=== PATIENT | male | born 1940 | race Caucasian/White ===

== ENCOUNTER 2019-02-13 22:43 | Inpatient (IN) | payer OTHER ==
--- NOTE | 2019-02-13 22:47 | PDOC ---
History of Present Illness - General Chief Complaint: Lightheaded Stated Complaint: DIZZINESS, HEADACHE Time Seen by Provider: 02/13/19 22:47 History Source: Patient Exam Limitations: No Limitations - History of Present Illness Initial Comments: 02/13/19 23:16 This is an 78-year-old male brought in by EMS for evaluation of dizziness and headache. Patient said approximately 5 PM this evening he had acute onset of frontal headache with associated vertigo-type symptoms. Patient denies any vomiting but has had some nausea. Patient denies any fever, chills, chest pain, shortness of breath, abdominal pain or any other complaints. Patient denies history of similar symptoms in the past. Allergies: as per nursing notes Past Medical History: none Social history: Lives with family. No smoking. No alcohol. No illicit drugs. Surgical history: None General: No fevers or chills, no weakness, no weight loss HEENT: No change in vision. No sore throat,. No ear pain CardioVascular: no chest discomfort. No shortness of breath Respiratory:No cough, or wheezing. Gastrointestinal: + nausea, no vomiting, diarrhea or constipation, No rectal bleeding Genitourinary: No dysuria, hematuria, or frequency Musculoskeletal: No joint or muscle pain or swelling Neurologic: + headache, +vertigo, +dizziness, no loss of consciousness Psychiatric: nor depression Skin: No rashes or easy bruising Endocrine: no increased thirst or abnormal weight change Allergic: no skin or latex allergy All other systems reviewed and normal Exam: General: Well-nourished well-developed individual, no acute distress HEENT: Throat: Normal, tonsils normal, no erythema or exudate Neck: Supple, no meningeal signs, no lymphadenopathy Eyes::Pupils equal reactive and round, extraocular motion intact Chest: Nontender to palpation Cardiac: S1-S2 normal, regular rate and rhythm, no murmurs rubs or gallops Respiratory: Lungs clear to auscultation bilateral Abdomen: Soft, nondistended, normal bowel sounds, there is no tenderness on palpation diffusely Extremities: Warm, dry, no cyanosis, clubbing, or edema Skin: No rashes Neuro: Alert and oriented x3, CN II - XII intact, nonfocal exam with normal strength, normal sensation, normal reflexes, normal gait, Psych: Normal mood and affect 02/14/19 02:33 Assessment and plan: This is an 78-year-old male with comes in with vertigo type symptoms and a headache. Patient's head CT was negative for any acute pathology. Patient's EKG was normal with the exception of a prolonged QT Patient's urine showed a urinary tract infection Patient given ceftriaxone for the urinary tract infection and some IV fluids Patient's symptoms are not improved and he will be admitted to a telemetry bed rule out posterior circulation stroke rule out cardiac causes. Past History - Past Medical History Allergies/Adverse Reactions: Allergies Allergy/AdvReac Type Severity Reaction Status Date / Time No Known Allergies Allergy Verified 02/13/19 22:46 ED Treatment Course - LABORATORY CBC & Chemistry Diagram: 02/14/19 00:20 02/14/19 00:20 *DC/Admit/Observation/Transfer Diagnosis at time of Disposition: Vertigo, Cystitis - Discharge Dispostion Condition at time of disposition: Good Decision to Admit order: Yes - Referrals - Patient Instructions - Post Discharge Activity
[2019-02-13] MEDS ORDERED: MECLIZINE HCL 25 MG TABLET (FP) PO ONE (23:17)
[2019-02-14] MEDS ORDERED: SODIUM CHLORIDE 500 ML IV STA (00:12)
[2019-02-14] MEDS ORDERED: MECLIZINE HCL 25 MG TABLET (FP) ONE (00:41)
[2019-02-14 01:26] LABS: BASO % 1.2 % (0-2.0); EOS % 0.8 % (0-4.5); HEMATOCRIT 30.1 % (35.4-49); LYMPH % 25.6 % (8-40); MCH 32.8 pg (25.7-33.7); MCHC 33.4 g/dl (32.0-35.9); MEAN CELL VOLUME 98.2 fl (80-96); MEAN PLT VOLUME 10.2 fl (7.5-11.1); MONO % 6.2 % (3.8-10.2); NEUT % 66.2 % (42.8-82.8); PLATELET COUNT 186 K/MM3 (134-434); RBC 3.06 M/mm3 (4.00-5.60); RDW 22.9 % (11.9-15.9); WHITE BLOOD COUNT 7.6 K/mm3 (4.0-10.0)
[2019-02-14 01:38] LABS: EPI CELLS 0.7 /HPF (0-5/HPF); HYALINE CASTS 9 /lpf (0-8); PH,URINE 5.5 (5.0-8.0); URINE APPEARANCE CLOUDY; URINE BACTERIA 4492.2 /hpf (NEGATIVE); URINE BILIRUBIN 1+ (NEGATIVE); URINE COLOR DK YELLOW; URINE GLUCOSE (UA) NEGATIVE (NEGATIVE); URINE KETONE TRACE (NEGATIVE); URINE LEUK ESTERASE 2+ (NEGATIVE); URINE NITRITE NEGATIVE (NEGATIVE); URINE PROTEIN 1+ (NEGATIVE); URINE RBC 66 /hpf (0-4); URINE WBC 305 /hpf (0-5)
[2019-02-14 01:53] LABS: ALBUMIN 3.6 g/dl (3.4-5.0); ALK PHOS 77 U/L (45-117); ANION GAP 11 MMOL/L (8-16); BILIRUBIN,TOTAL 1.3 mg/dL (0.2-1); CALCIUM 8.8 mg/dL (8.5-10.1); CHLORIDE 104 mmol/L (98-107); CO2 28 mmol/L (21-32); CREATININE 1.1 mg/dL (0.55-1.3); GLUCOSE,RANDOM 103 mg/dL (74-106); SGOT/AST 22 U/L (15-37); SGPT/ALT 26 U/L (13-61); SODIUM 144 mmol/L (136-145); TOT PROT 7.1 g/dl (6.4-8.2)
[2019-02-14] MEDS ORDERED: CEFTRIAXONE 1,000 MG in DEXTROSE 5%-WATER - 50 ML IVPB ONE (02:14)
[2019-02-14] MEDS ORDERED: cefTRIAXone SODIUM 1 GM VIAL ONE (02:36)
[2019-02-14 03:52] VITALS: BMI 27.1
[2019-02-14] MEDS ORDERED: MECLIZINE HCL 25 MG TABLET (FP) PO PRN (07:00)
[2019-02-14 08:04] LABS: ANISOCYTOSIS 3+; MACROCYTOSIS 0; TARGET CELLS 1+; TEAR DROP CELLS 1+
[2019-02-14 08:06] LABS: CALCIUM 8.4 mg/dl (8.5-10); CREATININE 0.9 mg/dl (0.55-1.3); POTASSIUM 3.8 mmol/L (3.5-5.1)
[2019-02-14 08:18] LABS: BASO % 1.3 % (0-2.0); EOS % 1.1 % (0-4.5); HEMATOCRIT 28.5 % (35.4-49); HEMOGLOBIN 9.4 GM/dl (11.7-16.9); MCH 32.7 pg (25.7-33.7); MCHC 32.8 g/dl (32.0-35.9); MEAN CELL VOLUME 99.4 fl (80-96); MEAN PLT VOLUME 9.8 fl (7.5-11.1); MONO % 7.8 % (3.8-10.2); NEUT % 62.8 % (42.8-82.8); PLATELET COUNT 173 K/MM3 (134-434); RBC 2.86 M/mm3 (4.00-5.60); RDW 21.7 % (11.9-15.9); WHITE BLOOD COUNT 6.7 K/mm3 (4.0-10.8)
--- NOTE | 2019-02-14 09:04 | EKG ---
Test Reason : Blood Pressure : / mmHG Vent. Rate : 064 BPM Atrial Rate : 064 BPM P-R Int : 136 ms QRS Dur : 088 ms QT Int : 476 ms P-R-T Axes : 047 021 011 degrees QTc Int : 491 ms NORMAL SINUS RHYTHM MINIMAL VOLTAGE CRITERIA FOR LVH, MAY BE NORMAL VARIANT PROLONGED QT ABNORMAL ECG NO PREVIOUS ECGS AVAILABLE Confirmed by KEILA TIDWELL, BRAD ([id number]) on 02/14/2019 9:04:19 AM Referred By: CHARISSA FRY Confirmed By:BRAD PEDRAZA MD
--- NOTE | 2019-02-14 10:17 | HP ---
CHIEF COMPLAINT: Dizziness, headache PCP: Dr. Palomo, [facility], [address] [facility] ([phone]) Urologist: Dr. Villegas HISTORY OF PRESENT ILLNESS: 78 year-old man with PMH significant for benign essential tremor and enlarged prostate, presented to the ED for evaluation of sudden onset of dizziness and headache. Patient was in his usual state of health until yesterday when he stood from a chair and experienced dizziness and an acute onset of a frontal headache 10/10. The dizziness resolved but the headache remained. At time of this admission, patient describes headache as 6/10 and he is with some lightheadedness. Patient denies any impairment of speech, gait is steady, no weakness, no paresthesias. Patient denies chest pain, palpitations, SOB, PANDYA, lower extremity edema. He endorses bilateral leg pain x 3 months worse with walking and relieved with rest. Patient denies recent illness, no fever, sweats , chills, nausea, vomiting, or diarrhea. 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; 30 steps to apartment which he does most days Smoking: no Alcohol: no Drugs: no Family History: non-contributory Allergies No Known Allergies Allergy (Verified 02/13/19 22:46) HOME MEDICATIONS: Home Medications Medication Instructions Recorded Oxybutynin Chloride [Oxybutynin 15 mg PO BID 02/14/19 Chloride ER] REVIEW OF SYSTEMS CONSTITUTIONAL: Absent: fever, chills, diaphoresis, generalized weakness, malaise, loss of appetite, weight change HEENT: Absent: rhinorrhea, nasal congestion, throat pain, throat swelling, difficulty swallowing, mouth swelling, ear pain, eye pain, visual changes CARDIOVASCULAR: Absent: chest pain, syncope, palpitations, irregular heart rate, lightheadedness , peripheral edema RESPIRATORY: Absent: cough, shortness of breath, dyspnea with exertion, orthopnea, wheezing, stridor, hemoptysis GASTROINTESTINAL: Absent: abdominal pain, abdominal distension, nausea, vomiting, diarrhea, constipation, melena, hematochezia GENITOURINARY: Absent: dysuria, frequency, urgency, hesitancy, hematuria, flank pain, genital pain MUSCULOSKELETAL: Absent: myalgia, arthralgia, joint swelling, back pain, neck pain SKIN: Absent: rash, itching, pallor HEMATOLOGIC/IMMUNOLOGIC: Absent: easy bleeding, easy bruising, lymphadenopathy, frequent infections ENDOCRINE: Absent: unexplained weight gain, unexplained weight loss, heat intolerance, cold intolerance NEUROLOGIC: +dizziness, + headache Absent: headache, focal weakness or paresthesias, dizziness, unsteady gait, seizure, mental status changes, bladder or bowel incontinence PSYCHIATRIC: Absent: anxiety, depression, suicidal or homicidal ideation, hallucinations. PHYSICAL EXAMINATION Vital Signs - 24 hr 02/13/19 02/13/19 02/14/19 22:46 23:15 02:48 Temperature 98.4 F 98.4 F Pulse Rate 66 Pulse Rate [ 67 Right] Respiratory 18 Rate Blood Pressure 143/70 Blood Pressure 170/79 [Left Arm] O2 Sat by Pulse 100 99 99 Oximetry (%) 02/14/19 02/14/19 03:41 06:39 Temperature 97.7 F 98.5 F Pulse Rate 80 74 Pulse Rate [ Right] Respiratory 18 18 Rate Blood Pressure 175/79 H 160/76 Blood Pressure [Left Arm] O2 Sat by Pulse 98 96 Oximetry (%) GENERAL: Awake, alert, and fully oriented, in no acute distress. HEAD: Normal with no signs of trauma. EYES: Pupils equal, round and reactive to light, extraocular movements intact, sclera anicteric, conjunctiva clear. No lid lag. EARS, NOSE, THROAT: Ears normal, nares patent, oropharynx clear without exudates. Moist mucous membranes. Edentulous. LUNGS: Breath sounds equal, clear to auscultation bilaterally. No wheezes, and no crackles. No accessory muscle use. HEART: Regular rate and rhythm, S1 and S2 ABDOMEN: Soft, nontender, not distended UPPER EXTREMITIES: 2+ pulses, warm, well-perfused. No cyanosis. No clubbing. No peripheral edema. LOWER EXTREMITIES: 2+ pulses, warm, well-perfused. No calf tenderness. No peripheral edema. NEUROLOGICAL: +nystagmus PSYCHIATRIC: Cooperative. Good eye contact. Appropriate mood and affect. SKIN: Warm, dry, normal turgor Laboratory Results - last 24 hr 02/14/19 02/14/1902/14/19 00:16 00:20 00:20 WBC 7.6 RBC 3.06 L Hgb 10.0 L Hct 30.1 L MCV 98.2 H MCH 32.8 MCHC 33.4 RDW 22.9 H Plt Count 186 MPV 10.2 Absolute Neuts (auto) 5.0 Neutrophils % 66.2 Lymphocytes % 25.6 Monocytes % 6.2 Eosinophils % 0.8 Basophils % 1.2 Nucleated RBC % 0 Hypochromia 3+ Poikilocytosis 2+ Anisocytosis 3+ Microcytosis 3+ Macrocytosis 0 Target Cells 1+ Tear Drop Cells 1+ Sodium 144 Potassium 4.0 Chloride 104 Carbon Dioxide 28 Anion Gap 11 BUN 16.0 Creatinine 1.1 Est GFR (CKD-EPI)AfAm 73.09 Est GFR (CKD-EPI)NonAf 63.07 Random Glucose 103 Calcium 8.8 Total Bilirubin 1.3 H AST 22 ALT 26 Alkaline Phosphatase 77 Creatine Kinase 41 Troponin I < 0.02 Total Protein 7.1 Albumin 3.6 Urine Color Dk yellow Urine Appearance Cloudy Urine pH 5.5 Ur Specific [place] 1.022 Urine Protein 1+ H Urine Glucose (UA) Negative Urine Ketones Trace H Urine Blood 2+ H Urine Nitrite Negative Urine Bilirubin 1+ H Urine Urobilinogen 1.0 Ur Leukocyte Esterase 2+ H Urine WBC (Auto) 305 Urine RBC (Auto) 66 Urine Casts (Auto) 9 U Epithel Cells (Auto) 0.7 Urine Bacteria (Auto) 4492.2 02/14/19 02/14/19 02/14/19 07:11 07:11 07:11 WBC 6.7 RBC 2.86 L Hgb 9.4 L Hct 28.5 L MCV 99.4 H MCH 32.7 MCHC 32.8 RDW 21.7 H Plt Count 173 MPV 9.8 Absolute Neuts (auto) 4.2 Neutrophils % 62.8 Lymphocytes % 27.0 Monocytes % 7.8 Eosinophils % 1.1 Basophils % 1.3 Nucleated RBC % Hypochromia Poikilocytosis Anisocytosis Microcytosis Macrocytosis Target Cells Tear Drop Cells Sodium 136 Potassium 3.8 Chloride 105 Carbon Dioxide 26 Anion Gap 5 L BUN 15.0 Creatinine 0.9 Est GFR (CKD-EPI)AfAm 93.16 Est GFR (CKD-EPI)NonAf 80.38 Random Glucose 102 Calcium 8.4 L Total Bilirubin AST ALT Alkaline Phosphatase Creatine Kinase Troponin I < 0.03 Total Protein Albumin Urine Color Urine Appearance Urine pH Ur Specific [place] Urine Protein Urine Glucose (UA) Urine Ketones Urine Blood Urine Nitrite Urine Bilirubin Urine Urobilinogen Ur Leukocyte Esterase Urine WBC (Auto) Urine RBC (Auto) Urine Casts (Auto) U Epithel Cells (Auto) Urine Bacteria (Auto) ASSESSMENT/PLAN 78 year-old man with PMH significant for benign essential tremor and enlarged prostate. Admitted for headache and dizziness r/o CVA/TIA. Found to have elevated blood pressure and UTI. r/o TIA/CVA --CT head unremarkable --MRI: no acute infarct or hemorrhage --neuro consult --start ASA, statin --Tylenol PRN Hypertension --MRI shows extensive ischemic changes most likely from HTN or small vessel arteriosclerosis --BP elevated on admission --start lisinopril Complicated UTI --afebrile, no leukocytosis --continue ceftriaxone --culture pending Enlarged prostate --continue oxybutinin FEN Fluids: PO intake adequate Electrolytes: replete as indicated Nutrition: low sodium DVT prophylaxis: subq lovenox Physical therapy Dispo: continues to require inpatient care. Full code. Visit type - Emergency Visit Emergency Visit: Yes ED Registration Date: 02/14/19 Care time: The patient presented to the Emergency Department on the above date and was hospitalized for further evaluation of their emergent condition. - New Patient This patient is new to me today: Yes Date on this admission: 02/14/19 - Critical Care Critical Care patient: No
[2019-02-14] MEDS: ENOXAPARIN NA (PORCINE) 40 MG/0.4 ML DISP.SYRIN SQ SCH (10:43)
[2019-02-14] MEDS ORDERED: LISINOPRIL 10 MG TABLET (FP) PO SCH (13:15)
[2019-02-14] MEDS ORDERED: LISINOPRIL 10 MG TABLET (FP) PO STA (14:10)
[2019-02-14] MEDS ORDERED: ATORVASTATIN CA 40 MG TABLET (FP) PO SCH (15:15)
[2019-02-14] MEDS ORDERED: ASPIRIN COATED 81 MG TABLET.EC PO SCH (15:15)
[2019-02-14] MEDS ORDERED: ACETAMINOPHEN 325 MG TABLET (FP) PO ONE (15:15)
--- NOTE | 2019-02-14 19:05 | CON.NEURO ---
Consult - Alcohol/Substance Use Hx Alcohol Use: Yes (social) - Smoking History Smoking history: Never smoked Have you smoked in the past 12 months: No If you are a former smoker, when did you quit?: 1960s Home Medications - Allergies Allergies/Adverse Reactions: Allergies Allergy/AdvReac Type Severity Reaction Status Date / Time No Known Allergies Allergy Verified 02/13/19 22:46 - Home Medications Home Medications: Ambulatory Orders Oxybutynin Chloride [Oxybutynin Chloride ER] 15 mg PO BID 02/14/19 Physical Exam-Neuro Vital Signs: Vital Signs Temperature 98.4 F 02/14/19 13:53 Pulse Rate 61 02/14/19 13:53 Respiratory Rate 17 02/14/19 13:53 Blood Pressure 122/50 L 02/14/19 13:53 O2 Sat by Pulse Oximetry (%) 96 02/14/19 13:53 Labs: CBC, BMP 02/14/19 07:11 02/14/19 07:11 Assessment/Plan cc Vertigo and Headche HPI 78 year old male history of BPH, ET. He came to hospital for sudden onset dizziness and headache. He describes headhace as frontal moderate intensity. Patietn describes dizziness as spinning sensation. He is independent at home, he is able to walk around with cane. Patient denies any focal neurological symptoms. He is found to have uti and being treated with abx. 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; 30 [address] to apartment which he does most days Smoking: Alcohol: Drugs: Allergies No Known Allergies Allergy (Verified 02/13/19 22:46) SH,ROS,FH , Medication reviewed in chart NEUROLOGICAL EXAMINATION Alert oriented x 3, speech is normal, neck is supple VSS eomi, no nystagmus was seen, pupils reactive, vf normal, face sensation is normal 5/5 all ext, ftn hts is normal sensation is normal reflex are normal mri of brain unremarkable Assessment/plan Sudden onset vertigo /headahce could be secondary to uti, patient has no focal neurological symptoms, no evidence of stroke , meningitis , cerebellar dysfunction, neuropathy Plan: suggest PT and continue abx for UTI - PT can - supprotive care
[2019-02-14] MEDS ORDERED: ACETAMINOPHEN 325 MG TABLET (FP) PO PRN (21:00)
[2019-02-14] MEDS ORDERED: PATIENT'S OWN MEDICATION (NON-FORMULARY) (Oxybutynin Chloride [Oxybutynin Chloride Er] 15 PO SCH (22:00)
--- NOTE | 2019-02-15 06:18 | PN ---
Physical Exam: SUBJECTIVE: Patient seen and examined. Cheery, feels well, voices no complaints , would like to go home as soon as possible. OBJECTIVE: Vital Signs Period Temp Pulse Resp BP Sys/Haas Pulse Ox Last 24 Hr 97.5 F-98.5 F 57-74 17-19 106-160/42-76 96-100 GENERAL: Awake, alert, and fully oriented, in no acute distress. LUNGS: Breath sounds equal, clear to auscultation bilaterally. No wheezes, and no crackles. No accessory muscle use. HEART: Regular rate and rhythm, S1 and S2 ABDOMEN: Soft, nontender, not distended UPPER EXTREMITIES: 2+ pulses, warm, well-perfused. No cyanosis. No clubbing. No peripheral edema. LOWER EXTREMITIES: 2+ pulses, warm, well-perfused. No calf tenderness. No peripheral edema. NEUROLOGICAL: CN II-XII grossly intact Laboratory Results - last 24 hr 02/14/19 02/14/19 02/14/19 00:20 00:20 07:11 WBC 6.7 RBC 2.86 L Hgb 9.4 L Hct 28.5 L MCV 99.4 H MCH 32.7 MCHC 32.8 RDW 21.7 H Plt Count 173 MPV 9.8 Absolute Neuts (auto) 4.2 Neutrophils % 62.8 Lymphocytes % 27.0 Monocytes % 7.8 Eosinophils % 1.1 Basophils % 1.3 Hypochromia 3+ Poikilocytosis 2+ Anisocytosis 3+ Microcytosis 3+ Macrocytosis 0 Target Cells 1+ Tear Drop Cells 1+ Sodium Potassium Chloride Carbon Dioxide Anion Gap BUN Creatinine Est GFR (CKD-EPI)AfAm Est GFR (CKD-EPI)NonAf Random Glucose Calcium Troponin I Urine Color Cancelled Urine Appearance Cancelled Urine pH Cancelled Urine Protein Cancelled Urine Glucose (UA) Cancelled Urine Ketones Cancelled Urine Blood Cancelled Urine Nitrite Cancelled Urine Bilirubin Cancelled Urine Urobilinogen Cancelled Ur Leukocyte Esterase Cancelled 02/14/19 02/14/19 02/14/19 07:11 07:11 12:25 WBC RBC Hgb Hct MCV MCH MCHC RDW Plt Count MPV Absolute Neuts (auto) Neutrophils % Lymphocytes % Monocytes % Eosinophils % Basophils % Hypochromia Poikilocytosis Anisocytosis Microcytosis Macrocytosis Target Cells Tear Drop Cells Sodium 136 Potassium 3.8 Chloride 105 Carbon Dioxide 26 Anion Gap 5 L BUN 15.0 Creatinine 0.9 Est GFR (CKD-EPI)AfAm 93.16 Est GFR (CKD-EPI)NonAf 80.38 Random Glucose 102 Calcium 8.4 L Troponin I < 0.03 < 0.03 Urine Color Urine Appearance Urine pH Urine Protein Urine Glucose (UA) Urine Ketones Urine Blood Urine Nitrite Urine Bilirubin Urine Urobilinogen Ur Leukocyte Esterase Active Medications Generic Name Dose Route Start Last Admin Trade Name Freq PRN Reason Stop Dose Admin Acetaminophen 650 mg 02/14/19 21:00 Tylenol - PO Q6H PRN PAIN LEVEL 1-5 Aspirin 81 mg 02/14/19 15:15 02/14/19 15:43 Ecotrin - PO 81 mg DAILY JARED Administration Atorvastatin Calcium 40 mg 02/14/19 15:15 02/14/19 15:43 Lipitor - PO 40 mg DAILY JARED Administration Enoxaparin Sodium 40 mg 02/14/19 10:00 02/14/19 10:43 Lovenox - SQ 40 mg DAILY JARED Administration Ceftriaxone Sodium 50 mls @ 100 mls/hr 02/15/19 10:00 Ceftriaxone 1 Gm-D5w Bag IVPB DAILY [facility] Protocol Lisinopril 10 mg 02/15/19 10:00 Prinivil PO DAILY JARED Solifenacin 10 mg 02/15/19 10:00 Vesicare - PO DAILY [facility] ASSESSMENT/PLAN: 78 year-old man with PMH significant for benign essential tremor and enlarged prostate. Admitted for headache and dizziness r/o CVA/TIA. Found to have elevated blood pressure and UTI. TIA/CVA ruled out --CT head unremarkable --MRI: no acute infarct or hemorrhage --seen and evaluated by neuro Dr. Luciano: no focal neurological symptoms, no evidence of stroke, meningitis, cerebellar dysfunction, neuropathy; vertigo and headache could be secondary to UTI --ASA and statin dc'd Hypertension --mildly hypotensive, d/c lisinopril --orthostatics now Complicated UTI --afebrile, no leukocytosis --continue ceftriaxone (day #2) --culture pending organism Enlarged prostate --continue vesicare FEN Fluids: PO intake adequate Electrolytes: replete as indicated Nutrition: low sodium DVT prophylaxis: subq lovenox Physical therapy Dispo: continues to require inpatient care. Full code. Visit type - Emergency Visit Emergency Visit: Yes ED Registration Date: 02/14/19 Care time: The patient presented to the Emergency Department on the above date and was hospitalized for further evaluation of their emergent condition. - New Patient This patient is new to me today: No - Critical Care Critical Care patient: No
[2019-02-15 07:09] LABS: HEMOGLOBIN 9.8 GM/dl (11.7-16.9)
[2019-02-15 07:17] LABS: BASO % 1.9 % (0-2.0); EOS % 7.1 % (0-4.5); HEMATOCRIT 30.1 % (35.4-49); LYMPH % 43.8 % (8-40); MCH 32.2 pg (25.7-33.7); MCHC 32.6 g/dl (32.0-35.9); MEAN CELL VOLUME 98.5 fl (80-96); MEAN PLT VOLUME 9.6 fl (7.5-11.1); MONO % 10.1 % (3.8-10.2); NEUT % 37.1 % (42.8-82.8); PLATELET COUNT 196 K/MM3 (134-434); RBC 3.05 M/mm3 (4.00-5.60); RDW 23.4 % (11.9-15.9); WHITE BLOOD COUNT 6.3 K/mm3 (4.0-10.8)
[2019-02-15 07:19] LABS: ALBUMIN 3.4 g/dl (3.4-5.0); BILIRUBIN,TOTAL 0.9 mg/dl (0.2-1); CALCIUM 8.6 mg/dl (8.5-10); CREATININE 1.2 mg/dl (0.55-1.3); POTASSIUM 3.9 mmol/L (3.5-5.1); TOT PROT 6.4 g/dl (6.4-8.2)
[2019-02-15] MEDS ORDERED: SOLIFENACIN SUCCINATE 5 MG TAB PO SCH (10:00)
[2019-02-15] MEDS ORDERED: LISINOPRIL 10 MG TABLET (FP) PO SCH ×2 (10:00)
[2019-02-15] MEDS ORDERED: CEFTRIAXONE 1 G/50 ML PREMIX 50 ML IVPB SCH ×2 (10:00)
[2019-02-15] MEDS: ENOXAPARIN NA (PORCINE) 40 MG/0.4 ML DISP.SYRIN SQ SCH (10:23)
[2019-02-15 14:14] VITALS: BP 128/52; PULSE 67; TEMP 98.4
--- NOTE | 2019-02-15 15:19 | DS ---
Physical Exam: SUBJECTIVE: Patient seen and examined. Patient seen and examined. Cheery, feels well, voices no complaints, would like to go home as soon as possible. OBJECTIVE: Vital Signs Period Temp Pulse Resp BP Sys/Haas Pulse Ox Last 24 Hr 97.4 F-98.4 F 57-81 18-19 106-136/42-60 99-100 PHYSICAL EXAM GENERAL: Awake, alert, and fully oriented, in no acute distress. LUNGS: Breath sounds equal, clear to auscultation bilaterally. No wheezes, and no crackles. No accessory muscle use. HEART: Regular rate and rhythm, S1 and S2 ABDOMEN: Soft, nontender, not distended UPPER EXTREMITIES: 2+ pulses, warm, well-perfused. No cyanosis. No clubbing. No peripheral edema. LOWER EXTREMITIES: 2+ pulses, warm, well-perfused. No calf tenderness. No peripheral edema. NEUROLOGICAL: CN II-XII grossly intact LABS Laboratory Results - last 24 hr 02/14/19 02/15/19 02/15/19 00:20 06:57 06:57 WBC 6.3 RBC 3.05 L Hgb 9.8 L Hct 30.1 L MCV 98.5 H MCH 32.2 MCHC 32.6 RDW 23.4 H Plt Count 196 MPV 9.6 Absolute Neuts (auto) 2.4 Neutrophils % 37.1 L D Lymphocytes % 43.8 H D Monocytes % 10.1 Eosinophils % 7.1 H D Basophils % 1.9 Sodium 140 Potassium 3.9 Chloride 108 H Carbon Dioxide 28 Anion Gap 4 L BUN 20.0 H Creatinine 1.2 Est GFR (CKD-EPI)AfAm 65.79 Est GFR (CKD-EPI)NonAf 56.77 Random Glucose 90 Calcium 8.6 Magnesium 2.0 Total Bilirubin 0.9 AST 31 ALT 24 Alkaline Phosphatase 64 Total Protein 6.4 Albumin 3.4 Urine Color Cancelled Urine Appearance Cancelled Urine pH Cancelled Urine Protein Cancelled Urine Glucose (UA) Cancelled Urine Ketones Cancelled Urine Blood Cancelled Urine Nitrite Cancelled Urine Bilirubin Cancelled Urine Urobilinogen Cancelled Ur Leukocyte Esterase Cancelled HOSPITAL COURSE: Date of Admission:02/14/19 Date of Discharge: 02/15/19 Pre hospital course 78 year-old man with PMH significant for benign essential tremor and enlarged prostate, presented to the ED for evaluation of sudden onset of dizziness and headache. Patient was in his usual state of health until yesterday when he stood from a chair and experienced dizziness and an acute onset of a frontal headache 10/10. The dizziness resolved but the headache remained. At time of this admission, patient describes headache as 6/10 and he is with some lightheadedness. Patient denies any impairment of speech, gait is steady, no weakness, no paresthesias. Patient denies chest pain, palpitations, SOB, PANDYA, lower extremity edema. He endorses bilateral leg pain x 3 months worse with walking and relieved with rest. Patient denies recent illness, no fever, sweats , chills, nausea, vomiting, or diarrhea. ER course (1) BP 175/79 (2) UA: 305 WBCs (3) CT head: no acute process Subsequent hospital course 78 year-old man with PMH significant for benign essential tremor and enlarged prostate. Admitted for headache and dizziness r/o CVA/TIA. Found to have elevated blood pressure and possible UTI. TIA/CVA ruled out --CT head unremarkable --MRI: no acute infarct or hemorrhage --seen and evaluated by neuro Dr. Luciano: no focal neurological symptoms, no evidence of stroke, meningitis, cerebellar dysfunction, neuropathy Hypertension --BP was elevated on admission, stabilized off anti-hypertensives --not orthostatic UTI ruled out --afebrile, no leukocytosis --culture negative --no further antibiotics Enlarged prostate --treated with vesicare Minutes to complete discharge: 35 Discharge Summary Reason For Visit: VERTIGO, CYSTITIS Current Active Problems Cystitis (Acute) Vertigo (Acute) Condition: Improved - Instructions Diet, Activity, Other Instructions: Your urine culture came back negative. You do not need any further antibiotics. Imaging of your brain (CT and MRI) were unremarkable. It is important you stay well-hydrated. Drink plenty of fluids every day. Return to the emergency department for any new or worsening symptoms. Referrals: Obed Palomo [Non Staff, Medical] - 1 Week Disposition: HOME - Home Medications Comprehensive Discharge Medication List: Ambulatory Orders Oxybutynin Chloride [Oxybutynin Chloride ER] 15 mg PO BID 02/14/19 This patient is new to me today: No Emergency Visit: Yes ED Registration Date: 02/14/19 Care time: The patient presented to the Emergency Department on the above date and was hospitalized for further evaluation of their emergent condition. Critical Care patient: No - Discharge Referral Referred to [facility] No
== END 2019-02-15 17:41 | disposition home or self-care (01) | DRG 690 ==
LOC: FER 22:43 → FM/S 02-14 02:44
PROVIDERS: ADMIT Internal Medicine; ATTEND Nurse Practitioner Acute Care
DX: N39.0 Urinary tract infection, site not specified (principal); R42 Dizziness and giddiness; N40.0 Benign prostatic hyperplasia without lower urinary tract symptoms; I10 Essential (primary) hypertension; R51 Headache; B95.4 Other streptococcus as the cause of diseases classified elsewhere
CPT/HCPCS: 36415; 70450-TC; 70551-TC; 71045-TC-FY; 80048; 80053; 81003; 82550; 83735; 84443; 84484; 85025; 87040; 87077; 87086; 93005; 93970-TC; 97116-GP; 97163-GP; 99285-25

== ENCOUNTER 2020-07-16 15:50 | Inpatient (IN) | payer OTHER, BC ==
[2020-07-16 16:15] VITALS: BMI 25.8
[2020-07-16] MEDS ORDERED: ACETAMINOPHEN 500 MG TABLET (FP) PO ONE (17:20)
[2020-07-16] MEDS ORDERED: ACETAMINOPHEN 325 MG TABLET (FP) ONE (17:26)
[2020-07-16 18:10] LABS: BASO % 1.2 % (0-2.0); EOS % 1.1 % (0-4.5); HEMATOCRIT 31.9 % (35.4-49); HEMOGLOBIN 10.5 GM/dL (11.7-16.9); LYMPH % 15.2 % (8-40); MCH 31.5 pg (25.7-33.7); MEAN CELL VOLUME 95.6 fl (80-96); MEAN PLT VOLUME 10.4 fl (7.5-11.1); MONO % 6.3 % (3.8-10.2); NEUT % 76.2 % (42.8-82.8); PLATELET COUNT 166 K/MM3 (134-434); RBC 3.33 M/mm3 (4.00-5.60); RDW 23.2 % (11.9-15.9); WHITE BLOOD COUNT 11.4 K/mm3 (4.0-10.0)
[2020-07-16 18:15] LABS: EPI CELLS 11 /uL (0-25.1); HYALINE CASTS 8 /uL (0-3.1); URINE APPEARANCE CLEAR; URINE BACTERIA 47 /uL (0-1359); URINE BILIRUBIN NEGATIVE (NEGATIVE); URINE COLOR YELLOW; URINE GLUCOSE (UA) NEGATIVE (NEGATIVE); URINE KETONE NEGATIVE (NEGATIVE); URINE LEUK ESTERASE NEGATIVE (NEGATIVE); URINE NITRITE NEGATIVE (NEGATIVE); URINE PROTEIN 1+ (NEGATIVE); URINE RBC 14 /uL (0-23.9); URINE WBC 14 /uL (0-25.8)
[2020-07-16 18:28] LABS: CHLORIDE 104 mmol/L (98-107); POTASSIUM 3.5 mmol/L (3.5-5.1); SODIUM 137 mmol/L (136-145)
[2020-07-16 18:31] LABS: ALBUMIN 3.2 g/dl (3.4-5.0); ANION GAP 5 MMOL/L (8-16); BLOOD UREA NITROGEN 7.3 mg/dL (7-18); CALCIUM 8.1 mg/dL (8.5-10.1); CO2 28 mmol/L (21-32); GLUCOSE,RANDOM 92 mg/dL (74-106); MAGNESIUM 1.8 mg/dL (1.8-2.4)
[2020-07-16 18:34] LABS: CREATININE 0.9 mg/dL (0.55-1.3); SGOT/AST 24 U/L (15-37); SGPT/ALT 22 U/L (13-61)
[2020-07-16 18:36] LABS: BILIRUBIN,TOTAL 0.8 mg/dL (0.2-1); TOT PROT 6.5 g/dl (6.4-8.2)
[2020-07-16 18:37] LABS: ALK PHOS 142 U/L (45-117)
[2020-07-16 21:15] LABS: ANISOCYTOSIS 2+; MACROCYTOSIS 0; PLATELET ESTIMATE NORMAL; TARGET CELLS 1+; TEAR DROP CELLS 1+
[2020-07-17 00:37] LABS: CHOLESTEROL 95 mg/dL (50-200); TRIGLYCERIDES 101 mg/dL (0-150)
[2020-07-17 00:38] LABS: LDL CHOLESTEROL (ONLY SJRH) 43 mg/dL (5-100)
[2020-07-17 00:39] LABS: HDL CHOLESTEROL 38 mg/dL (40-60)
[2020-07-17] MEDS ORDERED: ACETAMINOPHEN 1000 MG/100 ML VIAL (NON FORMULARY) IVPB ONE (00:56)
[2020-07-17 01:00] LABS: IRON SERUM 35 ug/dL (50-175); TOTAL IRON BINDING CAPACITY 168 ug/dL (250-450)
[2020-07-17] MEDS ORDERED: ACETAMINOPHEN INJECTION 100 ML IVPB ONE (02:07)
[2020-07-17] MEDS: SODIUM CHLORIDE 1,000 ML IV SCH ×2 (02:13→23:53)
[2020-07-17 07:49] LABS: INR 1.24 (0.83-1.09); PROTHROMBIN TIME (PATIENT) 15.2 SEC (9.7-13.0)
[2020-07-17 07:55] LABS: BASO % 2.1 % (0-2.0); EOS % 2.3 % (0-4.5); HEMATOCRIT 32.8 % (35.4-49); HEMOGLOBIN 10.9 GM/dL (11.7-16.9); MCH 31.7 pg (25.7-33.7); MCHC 33.4 g/dl (32.0-35.9); MEAN CELL VOLUME 95.1 fl (80-96); MEAN PLT VOLUME 10.1 fl (7.5-11.1); MONO % 8.9 % (3.8-10.2); NEUT % 62.7 % (42.8-82.8); PLATELET COUNT 173 K/MM3 (134-434); RBC 3.45 M/mm3 (4.00-5.60); RDW 23.2 % (11.9-15.9); WHITE BLOOD COUNT 7.6 K/mm3 (4.0-10.0)
[2020-07-17 08:23] LABS: ALBUMIN 3.1 g/dl (3.4-5.0); CALCIUM 8.2 mg/dL (8.5-10.1)
[2020-07-17 08:26] LABS: CREATININE 0.9 mg/dL (0.55-1.3)
[2020-07-17 08:27] LABS: PHOSPHOROUS 2.5 mg/dL (2.5-4.9)
[2020-07-17 08:28] LABS: BILIRUBIN,TOTAL 0.8 mg/dL (0.2-1); TOT PROT 6.4 g/dl (6.4-8.2)
[2020-07-17] MEDS ORDERED: ENOXAPARIN NA (PORCINE) 40 MG/0.4 ML DISP.SYRIN SQ SCH (10:00)
[2020-07-17] MEDS ORDERED: ASPIRIN COATED 81 MG TABLET.EC PO SCH (10:00)
[2020-07-17] MEDS ORDERED: ACETAMINOPHEN 1000 MG/100 ML VIAL (NON FORMULARY) IVPB PRN (10:20)
[2020-07-17] MEDS ORDERED: ASPIRIN 81 MG CHEWABLE TABLETS ONE (11:47)
[2020-07-17] MEDS ORDERED: metoPROLOL SUCCINATE 25 MG TAB.SR.24H (FP) ONE (11:48)
[2020-07-17] MEDS ORDERED: ENOXAPARIN NA (PORCINE) 40 MG/0.4 ML DISP.SYRIN SQ ONE (11:48)
[2020-07-17] MEDS: metoPROLOL SUCCINATE 25 MG TAB.SR.24H (FP) PO SCH (11:49)
[2020-07-17] MEDS ORDERED: IBUPROFEN 400 MG TABLET (FP) PO PRN (12:30)
[2020-07-17 19:05] LABS: BASO % 2.6 % (0-2.0); EOS % 2.2 % (0-4.5); HEMATOCRIT 29.7 % (35.4-49); LYMPH % 25.9 % (8-40); MCH 31.9 pg (25.7-33.7); MCHC 33.5 g/dl (32.0-35.9); MEAN CELL VOLUME 95.2 fl (80-96); MEAN PLT VOLUME 9.9 fl (7.5-11.1); MONO % 7.5 % (3.8-10.2); NEUT % 61.8 % (42.8-82.8); PLATELET COUNT 160 K/MM3 (134-434); RBC 3.12 M/mm3 (4.00-5.60); WHITE BLOOD COUNT 9.3 K/mm3 (4.0-10.0)
[2020-07-17] MEDS: ATORVASTATIN CA 40 MG TABLET (FP) PO SCH (23:53)
[2020-07-17] MEDS: ZINC OXIDE 20% TOPICAL OINTMENT 30 GM TUBE TP SCH (23:53)
[2020-07-18] MEDS ORDERED: RIVAROXABAN 20 MG TABLET PO ONE (00:32)
[2020-07-18 08:06] LABS: HEMATOCRIT 30.2 % (35.4-49); HEMOGLOBIN 10.1 GM/dL (11.7-16.9); MCHC 33.4 g/dl (32.0-35.9); MEAN CELL VOLUME 95.7 fl (80-96); PLATELET COUNT 147 K/MM3 (134-434); RBC 3.15 M/mm3 (4.00-5.60); RDW 24.2 % (11.9-15.9); WHITE BLOOD COUNT 7.5 K/mm3 (4.0-10.0)
[2020-07-18 08:15] LABS: POTASSIUM 4.2 mmol/L (3.5-5.1)
[2020-07-18 08:18] LABS: CALCIUM 8.2 mg/dL (8.5-10.1)
[2020-07-18 08:19] LABS: ALBUMIN 2.8 g/dl (3.4-5.0); BLOOD UREA NITROGEN 14.7 mg/dL (7-18)
[2020-07-18 08:22] LABS: CREATININE 0.9 mg/dL (0.55-1.3)
[2020-07-18 08:24] LABS: BILIRUBIN,TOTAL 0.7 mg/dL (0.2-1)
[2020-07-18] MEDS: metoPROLOL SUCCINATE 25 MG TAB.SR.24H (FP) PO SCH (09:14)
[2020-07-18] MEDS ORDERED: PNEUMOC 13-VAL CONJ-DIP CRM/PF 0.5 ML DISP.SYRIN IM ONE (10:00)
[2020-07-18] MEDS ORDERED: FLU VACCINE (FLULAVAL) PF 60 MCG/0.5 ML SYRINGE 2020-2021 IM ONE (10:00)
[2020-07-18] MEDS ORDERED: PT OWN MED DRAWER 7, Y5N ONE (12:15)
[2020-07-18] MEDS: ZINC OXIDE 20% TOPICAL OINTMENT 30 GM TUBE TP SCH (14:00)
[2020-07-18] MEDS: RIVAROXABAN 20 MG TABLET PO SCH (17:03)
[2020-07-18] MEDS: ACETAMINOPHEN 1000 MG/100 ML VIAL (NON FORMULARY) IVPB PRN (17:03)
[2020-07-18] MEDS ORDERED: LORazepam 2 MG/ML SDV VIAL IVPUSH ONE (22:05)
[2020-07-19] MEDS: ATORVASTATIN CA 40 MG TABLET (FP) PO SCH (01:11)
[2020-07-19] MEDS: ZINC OXIDE 20% TOPICAL OINTMENT 30 GM TUBE TP SCH ×2 (01:11→09:16)
[2020-07-19] MEDS: ACETAMINOPHEN 1000 MG/100 ML VIAL (NON FORMULARY) IVPB PRN ×2 (01:11→11:11)
[2020-07-19 08:25] LABS: HEMATOCRIT 26.8 % (35.4-49); MCH 32.2 pg (25.7-33.7); MCHC 33.7 g/dl (32.0-35.9); MEAN CELL VOLUME 95.5 fl (80-96); PLATELET COUNT 138 K/MM3 (134-434); RBC 2.81 M/mm3 (4.00-5.60); RDW 24.8 % (11.9-15.9); WHITE BLOOD COUNT 6.5 K/mm3 (4.0-10.0)
[2020-07-19 08:43] LABS: POTASSIUM 4.1 mmol/L (3.5-5.1)
[2020-07-19] MEDS ORDERED: TAMSULOSIN HCL 0.4 MG CAP PO SCH (08:43)
[2020-07-19 08:49] LABS: CALCIUM 8.2 mg/dL (8.5-10.1)
[2020-07-19 08:50] LABS: ALBUMIN 2.8 g/dl (3.4-5.0)
[2020-07-19 08:51] LABS: BLOOD UREA NITROGEN 13.8 mg/dL (7-18)
[2020-07-19 08:53] LABS: CREATININE 0.9 mg/dL (0.55-1.3)
[2020-07-19 08:54] LABS: BILIRUBIN,TOTAL 1.3 mg/dL (0.2-1)
[2020-07-19 08:55] LABS: TOT PROT 5.8 g/dl (6.4-8.2)
[2020-07-19] MEDS: metoPROLOL SUCCINATE 25 MG TAB.SR.24H (FP) PO SCH (09:15)
[2020-07-19] MEDS: RIVAROXABAN 20 MG TABLET PO SCH (17:06)
[2020-07-19 18:09] VITALS: BP 120/57; PULSE 60; TEMP 97.9
== END 2020-07-19 19:32 | DRG 552 ==
LOC: JER 15:50 → JERBED 20:12 → J4W 07-17 20:12 → J4S 07-18 15:49
PROVIDERS: ADMIT Internal Medicine; ATTEND Internal Medicine
DX: M47.12 Other spondylosis with myelopathy, cervical region (principal); N40.0 Benign prostatic hyperplasia without lower urinary tract symptoms; G25.0 Essential tremor; I10 Essential (primary) hypertension; D64.9 Anemia, unspecified; I48.0 Paroxysmal atrial fibrillation; D72.829 Elevated white blood cell count, unspecified; I65.21 Occlusion and stenosis of right carotid artery; R26.89 Other abnormalities of gait and mobility; D50.9 Iron deficiency anemia, unspecified; M48.02 Spinal stenosis, cervical region; R82.81 Pyuria; K80.80 Other cholelithiasis without obstruction; R16.1 Splenomegaly, not elsewhere classified; K76.89 Other specified diseases of liver; Y93.89 Activity, other specified; W18.30XA Fall on same level, unspecified, initial encounter; Y92.098 Other place in other non-institutional residence as the place of occurrence of the external cause
CPT/HCPCS: 36415; 70450-TC; 71045-TC-FY; 72125-TC; 74177-TC; 80053; 80061; 81003; 82550; 82607; 82728; 83540; 83550; 83721; 83735; 84100; 84443; 84484; 85025; 85027; 85045; 85610; 87086; 90670; 93005; 93010; 93306-TC; 93880-TC; 93971-TC; 97116-GP; 97161-GP; 99285-25; C9803; G0008; G0009; J0131; Q2036; Q9967; U0003

== ENCOUNTER 2020-08-30 17:36 | Inpatient (IN) | payer OTHER, BC ==
[2020-08-30 18:21] LABS: BASO % 1.3 % (0-2.0); EOS % 1.4 % (0-4.5); HEMATOCRIT 29.7 % (35.4-49); HEMOGLOBIN 9.8 GM/dL (11.7-16.9); LYMPH % 33.6 % (8-40); MCH 31.5 pg (25.7-33.7); MEAN CELL VOLUME 95.4 fl (80-96); MEAN PLT VOLUME 9.6 fl (7.5-11.1); MONO % 11.7 % (3.8-10.2); PLATELET COUNT 159 K/MM3 (134-434); RBC 3.11 M/mm3 (4.00-5.60); RDW 24.6 % (11.9-15.9); WHITE BLOOD COUNT 5.4 K/mm3 (4.0-10.0)
[2020-08-30 18:27] LABS: INR 1.46 (0.83-1.09); PROTHROMBIN TIME (PATIENT) 17.5 SEC (9.7-13.0)
[2020-08-30 18:29] LABS: ACTIVATED PTT 33.9 SECONDS (25.2-36.5)
[2020-08-30] MEDS ORDERED: ACETAMINOPHEN 1000 MG/100 ML VIAL (NON FORMULARY) IVPB ONE (18:35)
[2020-08-30] MEDS ORDERED: LACTATED RINGERS SOLUTION 1000 ML INFUS.BAG IV ONE ×2 (18:35→19:48)
[2020-08-30 18:43] LABS: ANISOCYTOSIS 2+; MACROCYTOSIS 1+; OVALOCYTE 1+; PLATELET ESTIMATE DECREASED; TARGET CELLS 1+
[2020-08-30] MEDS ORDERED: ACETAMINOPHEN INJECTION 100 ML IVPB ONE (18:46)
[2020-08-30 19:33] LABS: POTASSIUM 3.6 mmol/L (3.5-5.1)
[2020-08-30 19:35] LABS: CALCIUM 8.8 mg/dL (8.5-10.1)
[2020-08-30 19:36] LABS: ALBUMIN 3.6 g/dl (3.4-5.0); BLOOD UREA NITROGEN 12.5 mg/dL (7-18)
[2020-08-30 19:39] LABS: CREATININE 1.1 mg/dL (0.55-1.3)
[2020-08-30 19:40] LABS: BILIRUBIN,TOTAL 2.1 mg/dL (0.2-1); TOT PROT 7.3 g/dl (6.4-8.2)
[2020-08-30 19:43] LABS: LACTIC ACID 3.7 mmol/L (0.4-2.0)
[2020-08-30] MEDS ORDERED: HALOPERIDOL LACTATE 5 MG/ML IM ONE (20:19)
[2020-08-30] MEDS ORDERED: HALOPERIDOL LACTATE 5 MG/ML ONE (20:23)
[2020-08-30 23:30] LABS: LACTIC ACID 2.1 mmol/L (0.4-2.0)
[2020-08-31] MEDS: SODIUM CHLORIDE 1,000 ML IV SCH (01:38)
[2020-08-31 01:53] LABS: EPI CELLS 17 /uL (0-25.1); HYALINE CASTS 4 /uL (0-3.1); PH,URINE 5.5 (5.0-8.0); URINE APPEARANCE CLOUDY; URINE BACTERIA 43 /uL (0-1359); URINE BILIRUBIN NEGATIVE (NEGATIVE); URINE COLOR ORANGE; URINE GLUCOSE (UA) NEGATIVE (NEGATIVE); URINE KETONE NEGATIVE (NEGATIVE); URINE LEUK ESTERASE TRACE (NEGATIVE); URINE NITRITE NEGATIVE (NEGATIVE); URINE PROTEIN 1+ (NEGATIVE); URINE RBC 2546 /uL (0-23.9); URINE UROBILINOGEN 0.2 mg/dL (0.2-1.0); URINE WBC 47 /uL (0-25.8)
[2020-08-31] MEDS ORDERED: ACETAMINOPHEN 1000 MG/100 ML VIAL (NON FORMULARY) IVPB ONE (04:03)
[2020-08-31 06:11] LABS: HEMATOCRIT 24.4 % (35.4-49); HEMOGLOBIN 8.2 GM/dL (11.7-16.9); MCH 32.2 pg (25.7-33.7); MCHC 33.7 g/dl (32.0-35.9); MEAN CELL VOLUME 95.6 fl (80-96); MEAN PLT VOLUME 9.4 fl (7.5-11.1); PLATELET COUNT 120 K/MM3 (134-434); RBC 2.56 M/mm3 (4.00-5.60); WHITE BLOOD COUNT 4.8 K/mm3 (4.0-10.0)
[2020-08-31 06:22] LABS: POTASSIUM 3.5 mmol/L (3.5-5.1)
[2020-08-31 06:26] LABS: BLOOD UREA NITROGEN 11.4 mg/dL (7-18); MAGNESIUM 1.8 mg/dL (1.8-2.4)
[2020-08-31 06:29] LABS: BILIRUBIN,TOTAL 1.8 mg/dL (0.2-1); CREATININE 0.8 mg/dL (0.55-1.3); PHOSPHOROUS 2.4 mg/dL (2.5-4.9); TOT PROT 5.7 g/dl (6.4-8.2)
[2020-08-31 06:55] LABS: ALBUMIN 2.9 g/dl (3.4-5.0)
[2020-08-31] MEDS ORDERED: TAMSULOSIN HCL 0.4 MG CAP ONE (08:25)
[2020-08-31] MEDS: TAMSULOSIN HCL 0.4 MG CAP PO SCH (08:30)
[2020-08-31] MEDS ORDERED: metoPROLOL SUCCINATE 25 MG TAB.SR.24H (FP) ONE (09:55)
[2020-08-31] MEDS ORDERED: ENOXAPARIN NA (PORCINE) 40 MG/0.4 ML DISP.SYRIN SQ SCH (10:00)
[2020-08-31] MEDS: metoPROLOL SUCCINATE 25 MG TAB.SR.24H (FP) PO SCH (10:09)
[2020-08-31] MEDS ORDERED: ACETAMINOPHEN 325 MG TABLET (FP) ONE (10:52)
[2020-08-31] MEDS: ACETAMINOPHEN 325 MG TABLET (FP) PO PRN (11:00)
[2020-08-31] MEDS ORDERED: RIVAROXABAN 20 MG TABLET PO SCH (18:00)
[2020-08-31 18:15] VITALS: BMI 23.5
[2020-09-01 09:19] LABS: BASO % 2.3 % (0-2.0); HEMATOCRIT 24.2 % (35.4-49); HEMOGLOBIN 8.2 GM/dL (11.7-16.9); LYMPH % 27.1 % (8-40); MCH 32.3 pg (25.7-33.7); MCHC 33.9 g/dl (32.0-35.9); MEAN CELL VOLUME 95.1 fl (80-96); MEAN PLT VOLUME 8.7 fl (7.5-11.1); MONO % 8.4 % (3.8-10.2); NEUT % 59.2 % (42.8-82.8); PLATELET COUNT 118 K/MM3 (134-434); RBC 2.55 M/mm3 (4.00-5.60); RDW 25.2 % (11.9-15.9); WHITE BLOOD COUNT 4.3 K/mm3 (4.0-10.0)
[2020-09-01 09:50] LABS: POTASSIUM 3.9 mmol/L (3.5-5.1)
[2020-09-01 10:05] LABS: ALBUMIN 2.7 g/dl (3.4-5.0)
[2020-09-01 10:07] LABS: BILIRUBIN,DIRECT 0.4 mg/dL (0.0-0.2); BILIRUBIN,TOTAL 1.3 mg/dL (0.2-1); CREATININE 0.9 mg/dL (0.55-1.3); TOT PROT 5.6 g/dl (6.4-8.2)
[2020-09-01] MEDS: TAMSULOSIN HCL 0.4 MG CAP PO SCH (10:48)
[2020-09-01] MEDS: metoPROLOL SUCCINATE 25 MG TAB.SR.24H (FP) PO SCH (10:48)
[2020-09-01] MEDS: SODIUM CHLORIDE 1,000 ML IV SCH (17:31)
[2020-09-01] MEDS: ACETAMINOPHEN 325 MG TABLET (FP) PO PRN (21:47)
[2020-09-02 07:41] LABS: HEMATOCRIT 24.5 % (35.4-49); HEMOGLOBIN 8.3 GM/dL (11.7-16.9); MCH 32.3 pg (25.7-33.7); MCHC 33.8 g/dl (32.0-35.9); MEAN CELL VOLUME 95.7 fl (80-96); MEAN PLT VOLUME 9.1 fl (7.5-11.1); PLATELET COUNT 124 K/MM3 (134-434); RBC 2.56 M/mm3 (4.00-5.60); RDW 25.3 % (11.9-15.9); WHITE BLOOD COUNT 4.3 K/mm3 (4.0-10.0)
[2020-09-02 08:17] LABS: POTASSIUM 4.1 mmol/L (3.5-5.1)
[2020-09-02 08:23] LABS: CALCIUM 8.2 mg/dL (8.5-10.1)
[2020-09-02 08:25] LABS: ALBUMIN 2.6 g/dl (3.4-5.0); BLOOD UREA NITROGEN 14.3 mg/dL (7-18)
[2020-09-02 08:27] LABS: CREATININE 0.7 mg/dL (0.55-1.3)
[2020-09-02 08:29] LABS: BILIRUBIN,TOTAL 1.4 mg/dL (0.2-1)
[2020-09-02 08:32] LABS: TOT PROT 5.6 g/dl (6.4-8.2)
[2020-09-02] MEDS: metoPROLOL SUCCINATE 25 MG TAB.SR.24H (FP) PO SCH (10:02)
[2020-09-02] MEDS: TAMSULOSIN HCL 0.4 MG CAP PO SCH (10:02)
[2020-09-02] MEDS: POLYETHYLENE GLYCOL 3350 119 GM BTL PO SCH ×2 (13:15→22:39)
[2020-09-03 00:56] VITALS: BP 110/66; PULSE 79; TEMP 98.8
== END 2020-09-02 23:00 | DRG 92 ==
LOC: JER 17:36 → JERBED 21:59 → J5S 08-31 12:30
PROVIDERS: ADMIT Internal Medicine
DX: R29.6 Repeated falls (principal); E46 Unspecified protein-calorie malnutrition; E87.2 Acidosis; E86.0 Dehydration; H81.10 Benign paroxysmal vertigo, unspecified ear; I10 Essential (primary) hypertension; I48.0 Paroxysmal atrial fibrillation; R51.9 Headache, unspecified; Z68.23 Body mass index [BMI] 23.0-23.9, adult; N40.0 Benign prostatic hyperplasia without lower urinary tract symptoms; R62.7 Adult failure to thrive; D50.0 Iron deficiency anemia secondary to blood loss (chronic); W18.39XA Other fall on same level, initial encounter; Y92.89 Other specified places as the place of occurrence of the external cause
CPT/HCPCS: 36415; 70450-TC; 71045-TC-FY; 72125-TC; 72170-TC-FY; 80053; 81003; 82248; 82728; 82962; 83540; 83550; 83605; 83735; 84100; 84443; 84484; 85025; 85027; 85610; 85730; 86850; 86900; 86901; 87086; 93005; 93010; 97116-GP; 97162-GP; 99285-25; C9803; J0131; U0003